=== PATIENT | female | born 1950 | race Caucasian/White ===

== ENCOUNTER 2019-04-27 07:19 | Outpatient (CLI) | payer MEDICARE ==
[2019-04-27 10:05] LABS: #Basophils 0.1 thou/uL (0.0-0.2); #Eosinphils 0.3 thou/uL (0.0-0.7); #Lymphocytes 3.2 thou/uL (1.20-3.40); #Monocytes 0.7 thou/uL (0.11-0.59); #Neutrophils 6.6 thou/uL (1.40-6.50); %Basophils 0.9 % (0.0-1.0); %Lymphocytes 29.3 % (21.0-51.0); %Monocytes 6.8 % (0.0-10.0); Hemoglobin 14.9 g/dL (12.0-16.0); Mean Corpuscular HGB CONC 31.8 g/dL (32.0-36.0); Mean Corpuscular Hemoglobin 28.2 pg (27.0-31.0); Mean Corpuscular Volume 88.7 fL (78.0-98.0); Mean Platelet Volume 7.4 fL (7.4-10.4); Platelet Count 318 thou/uL (130-400)
[2019-04-27 10:12] LABS: PTT 31.2 SEC (22.9-36.1)
[2019-04-27 10:25] LABS: Anion Gap 14 mmol/L (10-20); BUN (Urea Nitrogen) 10 mg/dL (9.8-20.1); Calc. Creatinine Clearance 0 mL/min (70-130); Calcium 9.9 mg/dL (7.8-10.44); Carbon Dioxide 24 mmol/L (23-31); Chloride 107 mmol/L (98-107); Estimated GFR-MDRD 59; Glucose 79 mg/dL (83-110); Potassium 4.3 mmol/L (3.5-5.1); Sodium 141 mmol/L (136-145)
[2019-04-27 10:47] LABS: Bacteria/HPF None Seen HPF (None Seen); Bilirubin Negative (Negative); Blood, Urine Negative (Negative); Clarity Clear (Clear); Glucose, Urine (Dipstick) Normal (Negative); Leukocyte Negative Leu/uL (Negative); Nitrite Negative (Negative); Protein, Urine (Dipstick) Negative (Neg-Trace); RBC/HPF 0-3 HPF (0-3); Squamous Epithelial 0-3 HPF (0-3); Urobilinogen Normal mg/dL (Less than 2); WBC/HPF 0-3 HPF (0-3)
--- NOTE | 2019-04-27 17:02 | EKG ---
Test Reason : Blood Pressure : / mmHG Vent. Rate : 072 BPM Atrial Rate : 072 BPM P-R Int : 120 ms QRS Dur : 088 ms QT Int : 412 ms P-R-T Axes : 058 076 067 degrees QTc Int : 451 ms Normal sinus rhythm Normal ECG Confirmed by JERRI BARCLAY ([id number]) on 04/27/2019 5:02:20 PM Referred By: NELY Confirmed By:JERRI BARCLAY
== END 2019-04-27 07:20 | disposition home or self-care (01) ==
LOC: LABBT 07:19
PROVIDERS: ATTEND Orthopaedic Surgery
DX: Z01.818 Encounter for other preprocedural examination (principal); M87.9 Osteonecrosis, unspecified
CPT/HCPCS: 80048; 81001; 85025; 85610; 85730; 87081; 93005; 93010

== ENCOUNTER 2019-04-27 08:30 | Inpatient (IN) | payer MEDICARE ==
[2019-04-27 09:00] VITALS: BMI 29.2
[2019-05-09] MEDS ORDERED: Sodium Chloride 0.9% 100 ML ONE (08:10)
[2019-05-09] MEDS ORDERED: Tranexamic Acid 1,000 MG/10 ML VIAL ONE (08:10)
[2019-05-09] MEDS ORDERED: Fentanyl 100 MCG/2 ML VIAL ONE ×3 (09:12→13:27)
[2019-05-09] MEDS ORDERED: Midazolam HCl 2 mg/2 ml Vial ONE ×2 (09:12→10:28)
[2019-05-09] MEDS ORDERED: Bupivacaine PF 0.5% 30 ML VIAL ONE (10:26)
[2019-05-09] MEDS ORDERED: Propofol 1,000 MG/100 ML VIAL IV ONE (10:28)
[2019-05-09] MEDS ORDERED: Ondansetron PF 4 MG/2 ML Vial ONE (11:06)
[2019-05-09] MEDS ORDERED: Dexamethasone 20 MG/5 ML VIAL ONE (11:06)
[2019-05-09] MEDS ORDERED: PHENYLEPHRINE-NS 100 MCG/ML 10 ML SYRINGE ONE (11:06)
[2019-05-09] MEDS ORDERED: EPHEDRINE 25 MG/5 ML SYRINGE ONE (11:06)
[2019-05-09] MEDS ORDERED: Lidocaine 1.5% w/Epi 1:200K 30 ML VIAL (Epid Use) ONE (11:06)
[2019-05-09] MEDS ORDERED: Phenylephrine 10 MG/ML VIAL ONE (11:41)
[2019-05-09] MEDS ORDERED: Promethazine HCl 25 MG/ML VIAL IM PRN ×2 (12:17→13:00)
[2019-05-09] MEDS ORDERED: Acetaminophen 325 MG TAB PO PRN ×2 (12:17→13:00)
[2019-05-09] MEDS ORDERED: Ondansetron PF 4 MG/2 ML Vial IVP PRN ×2 (12:17→13:00)
[2019-05-09] MEDS ORDERED: diphenhydrAMINE 25 MG CAP PO PRN ×2 (12:17→13:00)
[2019-05-09] MEDS ORDERED: Fentanyl 100 MCG/2 ML VIAL SLOW IVP PRN (12:17)
[2019-05-09] MEDS ORDERED: HYDROcodone/Acetaminophen 10/325 mg Tablet PO PRN ×2 (12:17)
[2019-05-09] MEDS ORDERED: Zolpidem Tartrate 5 MG TAB PO PRN ×2 (12:17→13:00)
[2019-05-09] MEDS ORDERED: diphenhydrAMINE 50 MG/ML VIAL IVP PRN (13:00)
[2019-05-09] MEDS ORDERED: Naloxone HCl 0.4 mg/ml Vial IVP PRN (13:00)
[2019-05-09] MEDS ORDERED: Naloxone HCl 0.4 mg/ml Vial IV PRN (13:00)
[2019-05-09] MEDS ORDERED: Hydrocerin (Eucerin) Cream 120 gm Jar TOP PRN (13:00)
[2019-05-09] MEDS ORDERED: Bupivacaine 0.25% 10 ML VIAL EPIDURAL PRN (13:00)
[2019-05-09] MEDS ORDERED: Promethazine HCl 25 MG SUPP PR PRN (13:00)
[2019-05-09] MEDS ORDERED: diphenhydrAMINE 50 MG/ML VIAL IM PRN (13:00)
[2019-05-09] MEDS ORDERED: HYDROcodone/Acetaminophen 5/325 mg Tablet PO PRN ×2 (13:00)
--- NOTE | 2019-05-09 13:37 | RAD ---
RIGHT HIP TWO VIEWS: 05/09/19 HISTORY: Postop total hip arthroplasty. FINDINGS/IMPRESSION: There are recent postop changes of total hip arthroplasty in good position and alignment. POS: [facility]PC
--- NOTE | 2019-05-09 13:46 | OP ---
DATE OF PROCEDURE: 05/09/2019 This is Gary Pickens PA-C dictating for Junior Wang MD. ANESTHESIA: General via endotracheal tube, augmented with indwelling epidural. PREOPERATIVE DIAGNOSIS: End-stage bicompartmental osteoarthritis, right hip. POSTOPERATIVE DIAGNOSIS: End-stage bicompartmental osteoarthritis, right hip. PROCEDURE: Press-fit right total hip arthroplasty. SURGEON: Junior Wang MD FIELD STAFF: Gary Pickens PA-C COMPONENTS USED: [facility] Trident PSL 50-mm press-fit cluster acetabular shell with Accolade II press-fit size 4 hip stem, a 10-degree polyethylene fixed bearing insert, and a ceramic -5 neck length 36-mm outer diameter femoral head. ESTIMATED BLOOD LOSS: 400 mL. SPECIMENS: None. DRAINS: None. COMPLICATIONS: None. COUNTS: Correct. FINDINGS: End-stage severe degenerative bicompartmental disease, gvhv-[id number]-[id number] arthrosis, periarticular osteophyte formation, large serous effusion, and hypertrophic synovium, changes consistent with bicompartmental osteoarthritis. INDICATIONS FOR SURGERY: Akanksha is a 69-year-old white female who has had progressive right hip groin and thigh pain and problems with standing and walking for the last 5 to 7 years. She has failed conservative management and elected to proceed with total hip arthroplasty as definitive treatment of her pain. PROCEDURE IN DETAIL: After informed consent was obtained in the preoperative holding area, the patient was taken to the operative suite where general anesthesia was induced. The patient was then positioned in the lateral decubitus position. The hip was then prepped and draped in usual sterile fashion. The patient received preoperative antibiotics. Prior to incision, time-out was called and all members of the surgical team agreed upon site, surgeon, and patient. After this, a longitudinal incision was made directly over the trochanter, noted by palpation extending 2 fingerbreadths above and below the trochanter. The deeper subcutaneous layer was undermined with Bovie electrocautery. The iliotibial band was encountered and incised sharply and the plane below this was developed bluntly. A Charnley retractor was placed to hold this opened. The lateral aspect of the trochanter and the abductor muscles were encountered and then reflected anteriorly off the trochanter using Bovie electrocautery. Once this was completed, the anterior capsule was then encountered and identified and copious capsulotomy was carried out, exposing the femoral neck and head. Dislocation maneuver was then performed and an in situ provisional neck cut was then made using the oscillating saw. Attention was then turned to acetabular preparation. Sequential reaming was carried out up to the appropriate diameter and a trial was then malleted into place with good firm resistance and no pullout. The permanent acetabular shell was then malleted squarely into place, as was the appropriate liner. Once completed, the wound was copiously irrigated and attention was then turned to femoral preparation. Flexion and external rotation were performed of the exposed thigh and femoral elevators were then placed at the proximal aspect of the wound. Canal finder was used to establish the length of the canal and sequential reaming was carried out, followed by broaching. Once the appropriate stability was established with the trial broaches with flexion, extension and rotational stability, we did trial with neutral and 2 mm offset incremental necks. Once the appropriate size was decided upon, with good stability noted with flexion, extension, internal and external rotation and shuck being negative, we removed the femoral trial broach and malletted into place the permanent prosthesis with good firm fit, which was also stable to rotation. Again, the hip felt very stable to flexion, extension, internal and external rotation. Leg lengths appeared near anatomic clinically and we were quite happy with prosthesis placement. Copious irrigation was then carried out through the entirety of the wound. Primary closure of the abductors was accomplished with interrupted #2 Vicryl [id number] stitches and the IT band was then closed with interrupted #2 Vicryl, oversewn with a #2 running barbed Quill stitch. Subcutaneous fascia was closed with running barbed Quill stitch and a subcuticular Monocryl barbed Quill stitch was used for skin closure and augmented with skin cement. A sterile dressing was applied. The procedure was terminated without any complication. All counts were correct. The patient was awakened in the operative suite and taken to the recovery room in stable condition. Job ID: [id number]
[2019-05-09] MEDS ORDERED: Ketorolac Tromethamine 30 MG/ML VIAL IVP SCH (14:00)
[2019-05-09] MEDS: Sodium Chloride 0.9% 1,000 ML IV SCH (15:39)
[2019-05-09] MEDS: CEFAZOLIN 2 GM in Premix Bag 1 BAG IVPB SCH (15:39)
--- NOTE | 2019-05-09 17:16 | PDOC.HOSPP ---
- Subjective Encounter Date: 05/09/19 Encounter Time: 16:45 Subjective: Patient seen and examined. No new complaints. s/p Right Total hip replacement. Denies any chest pain, SOB, nausea or vomiting. Reports pain is well controlled at this time. Consulted for medical management. - Objective Vital Signs & Weight: Weight Weight 160 lb Additional Labs: 04/27/19 pre op EKG NSR 72 bpm Na 141 K 4.8 BUN 10 Creatinine 0.94 GFR 59 WBC 11 hgb 14.9 hct 47 plat 318 UA unremarkable EKG Reviewed by me: Yes (NSR) Hospitalist ROS - Review of Systems Constitutional: denies: fever, chills, sweats, weakness, malaise, other Respiratory: denies: cough, dry, shortness of breath, hemoptysis, SOB with excertion, pleuritic pain, sputum, wheezing, other Cardiovascular: denies: chest pain, palpitations, orthopnea, paroxysmal noc. dyspnea, edema, light headedness, other Gastrointestinal: denies: nausea, vomiting, abdominal pain, diarrhea, constipation, melena, hematochezia, other - Medication Medications: Active Medications Generic Name Dose Route Start Last Admin Trade Name Freq PRN Reason Stop Dose Admin Cefazolin Sodium/Dextrose 2 gm 50 mls @ 100 mls/hr 05/09/19 16:00 05/09/19 15 :39 / Device IVPB 05/10/19 00:28 50 mls 0800,1600,2359 CARRIE Administration Sodium Chloride 1,000 mls @ 100 mls/hr 05/09/19 12:30 05/09/19 15:39 Normal Saline 0.9% IV 1,000 mls .Q10H CARRIE Administration - Exam General Appearance: NAD, awake alert Eye: anicteric sclera Heart: RRR, no murmur, no gallops, no rubs, normal peripheral pulses Respiratory: CTAB, no wheezes, no rales, no ronchi, normal chest expansion Gastrointestinal: soft, non-tender, non-distended, no guarding, no rigidity Extremities: no cyanosis, no edema Psychiatric: normal affect, A&O x 3 Hosp A/P - Plan Impression: HTN CKD III Osteoarthritis s/p right THR Plan: Continue losartan ASA for DVT prophylaxis per [facility] protocol PT/OT per [facility] protocol Epidural in place per anesthesia Recheck labs in am
[2019-05-09] MEDS: Ketorolac Tromethamine 30 MG/ML VIAL IVP SCH (17:42)
[2019-05-10] MEDS: Ketorolac Tromethamine 30 MG/ML VIAL IVP SCH ×4 (00:15→17:50)
[2019-05-10] MEDS: CEFAZOLIN 2 GM in Premix Bag 1 BAG IVPB SCH (00:15)
[2019-05-10] MEDS: Sodium Chloride 0.9% 1,000 ML IV SCH ×3 (00:19→16:15)
[2019-05-10] MEDS: Fentanyl 5 mcg/Bup 0.075% Cadd 100 ML EPIDURAL SCH ×2 (04:14→21:02)
[2019-05-10 06:12] LABS: Hemoglobin 11.7 g/dL (12.0-16.0); Mean Corpuscular HGB CONC 33.7 g/dL (32.0-36.0); Mean Corpuscular Hemoglobin 29.9 pg (27.0-31.0); Mean Corpuscular Volume 88.7 fL (78.0-98.0); Mean Platelet Volume 7.5 fL (7.4-10.4); Platelet Count 219 thou/uL (130-400); RBC Distribution Width 12.4 % (11.5-14.5); Red Blood Cell (RBC) Count 3.92 mill/uL (4.20-5.40); White Blood Cell (WBC) Count 13.7 thou/uL (4.8-10.8)
[2019-05-10 06:29] LABS: Anion Gap 11 mmol/L (10-20); BUN (Urea Nitrogen) 9 mg/dL (9.8-20.1); Calc. Creatinine Clearance 74 mL/min (70-130); Calcium 8.8 mg/dL (7.8-10.44); Carbon Dioxide 23 mmol/L (23-31); Chloride 106 mmol/L (98-107); Estimated GFR-MDRD 71; Glucose 102 mg/dL (83-110); Sodium 136 mmol/L (136-145)
[2019-05-10] MEDS: Aspirin 81 mg Enteric Coated Tablet PO SCH ×2 (08:40→21:02)
[2019-05-10] MEDS: Multivitamin W/ Minerals 1 TAB PO SCH (08:40)
[2019-05-10] MEDS: Senokot S 8.6-50 MG TAB PO SCH ×2 (08:40→21:02)
[2019-05-10] MEDS: Ferrous Gluconate 324 MG TAB PO SCH ×2 (08:40→21:02)
[2019-05-10] MEDS: Losartan 25 MG TAB PO SCH (08:42)
[2019-05-10] MEDS: Acetaminophen ER (8hr) 650 MG TAB PO SCH (10:29)
--- NOTE | 2019-05-10 13:10 | PRG ---
DATE OF SERVICE: 05/10/2019 SUBJECTIVE: Akanksha is a 69-year-old white female. She is postop day 1 from right total hip arthroplasty. She is doing relatively well. Her pain is controlled. She has no complaints this morning. OBJECTIVE: VITAL SIGNS: Temperature 98.8, pulse 86, respiratory rate 16 and unlabored, blood pressure 105/65. GENERAL: She is alert and oriented to person, place, time, situation, and responds appropriately with examiner. Her incision is clean. No shortening or malrotation. No erythema. No strike through. LABORATORY DATA: Hemoglobin and hematocrit 11.7 and 34.8. IMPRESSION: A 69-year-old female postop day 1 right total hip arthroplasty doing well. PLAN: Continue current care, probable discharge tomorrow. Job ID: [id number]
[2019-05-11] MEDS: Ketorolac Tromethamine 30 MG/ML VIAL IVP SCH ×3 (00:28→11:44)
[2019-05-11] MEDS: Sodium Chloride 0.9% 1,000 ML IV SCH (04:25)
[2019-05-11 05:31] LABS: Hemoglobin 11.6 g/dL (12.0-16.0); Mean Corpuscular HGB CONC 32.7 g/dL (32.0-36.0); Mean Corpuscular Volume 88.7 fL (78.0-98.0); Mean Platelet Volume 7.5 fL (7.4-10.4); Platelet Count 219 thou/uL (130-400); RBC Distribution Width 12.6 % (11.5-14.5); Red Blood Cell (RBC) Count 4.01 mill/uL (4.20-5.40); White Blood Cell (WBC) Count 13.2 thou/uL (4.8-10.8)
[2019-05-11] MEDS: Losartan 25 MG TAB PO SCH (08:44)
[2019-05-11] MEDS: Aspirin 81 mg Enteric Coated Tablet PO SCH (08:44)
[2019-05-11] MEDS: Senokot S 8.6-50 MG TAB PO SCH (08:45)
[2019-05-11] MEDS: Ferrous Gluconate 324 MG TAB PO SCH (08:45)
[2019-05-11] MEDS: Multivitamin W/ Minerals 1 TAB PO SCH (08:46)
[2019-05-11] MEDS: Acetaminophen ER (8hr) 650 MG TAB PO SCH (09:05)
[2019-05-11 12:20] VITALS: BP 129/72; TEMP 98.2
== END 2019-05-11 13:55 | disposition home or self-care (01) | DRG 470 ==
LOC: SJJU 05-09 07:56 → SURG A 05-09 14:31
PROVIDERS: ADMIT Orthopaedic Surgery; ATTEND Orthopaedic Surgery
PROC: 0SR904A Replacement of Right Hip Joint with Ceramic on Polyethylene Synthetic Substitute, Uncemented, Open Approach (ICD-10-PCS; principal; 2019-05-09)
DX: M16.11 Unilateral primary osteoarthritis, right hip (principal); I12.9 Hypertensive chronic kidney disease with stage 1 through stage 4 chronic kidney disease, or unspecified chronic kidney disease; N18.3 Chronic kidney disease, stage 3 (moderate); Z79.899 Other long term (current) drug therapy
CPT/HCPCS: 36415; 80048; 85027; J0690; J1100; J1885; J2001; J2250; J2370; J2405; J2704; J3010; J3370; J3490; S0020